=== PATIENT | male | born 1940 | race Two or more races ===

== ENCOUNTER 2023-06-13 17:41 | Inpatient (IN) | payer OTHER, MEDICAID ==
[~2023-06-13] VITALS: Ht 172.7 cm; Wt 77.0 kg
[2023-06-13 18:13] VITALS: BP 187/109; RESP 16; O2SAT 98
[2023-06-13 19:03] VITALS: PULSE 102
[2023-06-13 19:16] LABS: Basophils # (auto) 0 10 ^3/uL (0-0.2); Basophils % (auto) 0.5 % (0.0-2.0); Eosinophils # (auto) 0 10 ^3/uL (0-0.8); Eosinophils % (auto) 0.2 % (0.0-7.0); Hematocrit 44.3 % (41.0-53.0); Hemoglobin 14.8 g/dL (13.5-17.5); Lymphocytes # (auto) 1.3 10 ^3/uL (0.4-5.4); Lymphocytes % (auto) 15.6 % (10.0-50.0); Mean Corpuscular Hemoglobin 31.2 pg (28.0-32.0); Mean Corpuscular Hgb Conc. 33.3 g/dL (32.0-36.0); Mean Corpuscular Volume 93.4 fL (80.0-100.0); Monocytes # (auto) 0.5 10 ^3/uL (0-1.3); Monocytes % (auto) 5.7 % (0.0-12.0); Neutrophils # (auto) 6.5 10 ^3/uL (1.6-8.6); Nucleated Red Blood Cells % 0.1 %; Red Blood Cells 4.74 10^6/uL (4.5-5.90); White Blood Cell 8.4 10^3/uL (4.4-10.8)
[2023-06-13 19:23] LABS: Chloride 108 mmol/L (98-107); Potassium 3.6 mmol/L (3.5-5.1); Sodium 141 mmol/L (136-145)
[2023-06-13 19:24] LABS: Anion Gap 7 (5-15); Calcium 9.6 mg/dL (8.7-10.4); Carbon Dioxide 26 mmol/L (20-30)
[2023-06-13 19:29] LABS: BUN/Creatinine Ratio 12.1 (10.0-20.0); Blood Urea Nitrogen 14 mg/dL (9-23); Glucose 112 mg/dL (74-106)
[2023-06-13 19:30] LABS: Magnesium 2.1 mg/dL (1.6-2.6)
[2023-06-13 19:59] LABS: Blood Alcohol 4.6 mg/dL (<10)
[2023-06-13] MEDS: SODIUM CHLORIDE 0.9% 500 ML IVB ONE (20:06)
[2023-06-13] MEDS ORDERED: ACETAMINOPHEN 325 MG TAB PO PRN (20:45)
[2023-06-13] MEDS ORDERED: NITROGLYCERIN 0.4 MG SL TAB SL PRN (20:45)
[2023-06-13] MEDS ORDERED: MORPHINE SULFATE INJ 2 MG/ml SYRG IV PRN (20:45)
[2023-06-13] MEDS ORDERED: ONDANSETRON HCL 4 MG/2 ML VIAL IV PRN (20:45)
[2023-06-13] MEDS ORDERED: METOPROLOL TARTRATE 25 MG TAB PO SCH (22:00)
[2023-06-14] MEDS ORDERED: ASPirin 81 mg TAB PO SCH (10:00)
[2023-06-14] MEDS ORDERED: ENOXAPARIN SOD 40 MG/0.4 ML SYRINGE SC SCH (10:00)
== END 2023-06-13 22:01 | disposition left against medical advice (07) | DRG 72 ==
LOC: EDBD 17:41 → ER 17:41 → OVERFLOW 20:41
PROVIDERS: ADMIT Nurse Practitioner; ATTEND Nurse Practitioner
DX: G93.49 Other encephalopathy (principal); I10 Essential (primary) hypertension; F17.210 Nicotine dependence, cigarettes, uncomplicated; F03.90 Unspecified dementia, unspecified severity, without behavioral disturbance, psychotic disturbance, mood disturbance, and anxiety; Z53.29 Procedure and treatment not carried out because of patient's decision for other reasons; R62.7 Adult failure to thrive; Z91.148 Patient's other noncompliance with medication regimen for other reason; Z68.25 Body mass index [BMI] 25.0-25.9, adult
CPT/HCPCS: 36415; 70450; 71045; 80048; 80320; 83735; 85025; 93005; G0378